=== PATIENT | male | born 2005 | race Caucasian/White ===

== ENCOUNTER 2025-02-24 16:25 | Emergency (ER) | payer OTHER ==
[~2025-02-24] VITALS: Ht 167.6 cm; Wt 55.0 kg
[2025-02-24 16:55] VITALS: BP 135/95; PULSE 65; RESP 20; TEMP 98.2; O2SAT 100
== END 2025-02-24 19:27 ==
LOC: EMS 16:25
DX: F12.90 Cannabis use, unspecified, uncomplicated (principal); F17.210 Nicotine dependence, cigarettes, uncomplicated; Z98.890 Other specified postprocedural states; Z20.821 Contact with and (suspected) exposure to Zika virus
CPT/HCPCS: 71250; 72192; 74150; 74176; 99284; Z7502

== ENCOUNTER 2025-02-25 11:53 | Emergency (ER) | payer OTHER ==
[~2025-02-25] VITALS: Ht 167.6 cm; Wt 55.0 kg
[2025-02-25 12:04] VITALS: TEMP 98.9
[2025-02-25 13:00] VITALS: BP 145/67; PULSE 63; RESP 18; O2SAT 98
== END 2025-02-25 13:32 ==
LOC: EMS 11:53
DX: T18.9XXA Foreign body of alimentary tract, part unspecified, initial encounter (principal); F17.210 Nicotine dependence, cigarettes, uncomplicated; F12.90 Cannabis use, unspecified, uncomplicated; Z98.890 Other specified postprocedural states; W44.8XXA Other foreign body entering into or through a natural orifice, initial encounter; Y93.89 Activity, other specified; Y92.89 Other specified places as the place of occurrence of the external cause; Y99.8 Other external cause status
CPT/HCPCS: 99283; Z7502